=== PATIENT | female | born 1980 | race Caucasian/White ===

== ENCOUNTER 2018-05-20 18:48 | Emergency (ER) | payer OTHER ==
[~2018-05-20] VITALS: Ht 149.9 cm; Wt 53.5 kg
== END 2018-05-20 22:30 | disposition home or self-care (01) ==
LOC: ER 18:48
DX: N39.0 Urinary tract infection, site not specified (principal); R10.13 Epigastric pain

== ENCOUNTER 2021-02-25 10:20 | Emergency (ER) | payer OTHER ==
[~2021-02-25] VITALS: Ht 149.9 cm; Wt 52.2 kg
[2021-02-25] MEDS ORDERED: ZITHROMAX TRI-500 MG PO (13:50)
[2021-02-25] MEDS ORDERED: NORFLEX100MG PO (13:50)
== END 2021-02-25 14:27 | disposition home or self-care (01) ==
LOC: ER 10:20
DX: M54.2 Cervicalgia (principal); M79.602 Pain in left arm; R20.0 Anesthesia of skin; B96.0 Mycoplasma pneumoniae [M. pneumoniae] as the cause of diseases classified elsewhere